=== PATIENT | female | born 1965 | race African-American/Black ===

== ENCOUNTER 2021-09-03 11:23 | Inpatient (IN) ==
[2021-09-03] MEDS ORDERED: DILTIAZEM 50 MG/10 ML VIAL IV STA (11:44)
[2021-09-03] MEDS: DILTIAZEM INJ 100 MG in SODIUM CHLORIDE 0.9% 100 ML IV SCH (12:11)
[2021-09-03 12:23] LABS: Basophils # 0.1 10*3/uL (0.0-0.2); Basophils % 0.9 % (0.0-0.8); Eosinophils # 0.1 10*3/uL (0.0-0.87); Eosinophils % 1.1 % (0.00-10.9); Hematocrit 46.9 VOL% (35.7-47.0); Hemoglobin 14.8 GM/DL (12.0-16.0); Immature Granulocytes % 0.2 %; Immature Granulocytes Absolute 0.01 #; Lymphocytes # 2.4 10*3/uL (1.4-4.0); Lymphocytes % 41.9 % (21.3-54.2); Mean Corpuscular HGB Conc 31.6 GM/DL (32-36); Mean Corpuscular Volume 66.2 FL (87-102); Monocytes % 6.3 % (1.7-12.7); NRBC # 0.04 10*3/uL; Neutrophils % 49.6 % (38.7-73.9); Platelet Count 277 T/CUMM (130-400); Red Blood Count 7.08 MC/CUMM (3.8-5.5); Red Cell Distribution Width 24.2 % (9.3-17.3); White Blood Count 5.7 T/CUMM (4-12)
[2021-09-03 12:57] LABS: Platelet Estimate Normal; Polychromasia 2+; Target Cells 2+
[2021-09-03 12:58] LABS: Anisocytosis 3+; Burr Cells Slight; Hypochromasia Slight; Macrocytosis 1+; Microcytosis 3+; Poikilocytosis 1+; Schistocytes 1+
[2021-09-03 13:09] LABS: Albumin 2.9 G/DL (3.4-5.0); Bilirubin,Total 1.6 MG/DL (0.20-1.00); Calcium 9.1 MG/DL (8.5-10.1); Osmolality,Calculated 281.4 MOS/KG (273-304); Potassium 2.9 MMOL/L (3.5-5.1); Thyroid Stimulating Hormone 2.56 uIU/ml (0.358-3.74); Total Protein 6.7 G/DL (6.4-8.2)
[2021-09-03] MEDS ORDERED: POTASSIUM CHLORIDE 20 MEQ TABLET PO STA (13:47)
[2021-09-03] MEDS ORDERED: FUROSEMIDE 40 MG/4 ML VIAL IV STA (14:33)
[2021-09-03] MEDS ORDERED: SIMETHICONE CHEW 125 MG TABLET PO PRN (15:23)
[2021-09-03] MEDS ORDERED: ONDANSETRON 4 MG/2 ML VIAL IV PRN (15:23)
[2021-09-03] MEDS ORDERED: GLUCAGON 1 MG VIAL IM PRN (15:23)
[2021-09-03] MEDS ORDERED: DOCUSATE SODIUM 100 MG CAPSULE PO PRN (15:23)
[2021-09-03] MEDS ORDERED: MAGNESIUM SULF RIDER 2 GM/50 ML PREMIX IV PRN (15:31)
[2021-09-03] MEDS ORDERED: MAGNESIUM SULF RIDER 4 GM/100 ML PREMIX IV PRN (15:31)
[2021-09-03] MEDS ORDERED: DEXTROSE 50% 25 GM/50 ML SYRINGE IV PRN (15:40)
[2021-09-03] MEDS: DIGOXIN 0.25 MG TABLET PO SCH (18:34)
[2021-09-03] MEDS: POTASSIUM CHLORIDE 20 MEQ TABLET PO PRN (20:40)
[2021-09-03] MEDS: APIXABAN 5 MG TABLET PO SCH (20:40)
[2021-09-04 05:16] LABS: Basophils # 0.1 10*3/uL (0.0-0.2); Eosinophils # 0.1 10*3/uL (0.0-0.87); Eosinophils % 1.2 % (0.00-10.9); Hematocrit 39.9 VOL% (35.7-47.0); Immature Granulocytes % 0.2 %; Immature Granulocytes Absolute 0.01 #; Lymphocytes # 2.4 10*3/uL (1.4-4.0); Lymphocytes % 40.9 % (21.3-54.2); Mean Corpuscular HGB Conc 31.1 GM/DL (32-36); Mean Corpuscular Volume 66.4 FL (87-102); Monocytes % 7.3 % (1.7-12.7); NRBC # 0.02 10*3/uL; Neutrophils % 49.4 % (38.7-73.9); Red Blood Count 6.01 MC/CUMM (3.8-5.5); White Blood Count 5.8 T/CUMM (4-12)
[2021-09-04 05:39] LABS: Hemoglobin 12.4 GM/DL (12.0-16.0); Platelet Count 193 T/CUMM (130-400)
[2021-09-04 05:48] LABS: Albumin 2.5 G/DL (3.4-5.0); Calcium 8.8 MG/DL (8.5-10.1); Osmolality,Calculated 286.8 MOS/KG (273-304); Total Protein 6.1 G/DL (6.4-8.2)
[2021-09-04] MEDS: PANTOPRAZOLE 40 MG TABLET PO SCH (10:03)
[2021-09-04] MEDS: DIGOXIN 0.25 MG TABLET PO SCH (10:03)
[2021-09-04] MEDS: NICOTINE 21 MG/24 HR PATCH TRANSDERM SCH (10:03)
[2021-09-04] MEDS: APIXABAN 5 MG TABLET PO SCH ×2 (10:03→21:42)
[2021-09-04] MEDS ORDERED: POTASSIUM CHLORIDE 20 MEQ TABLET PO ONE (10:13)
[2021-09-04] MEDS ORDERED: MAGNESIUM SULF RIDER 2 GM/50 ML PREMIX IV ONE (10:13)
[2021-09-04] MEDS ORDERED: VERAPAMIL SR 120 MG TABLET PO SCH (10:30)
[2021-09-04] MEDS: DILTIAZEM INJ 100 MG in SODIUM CHLORIDE 0.9% 100 ML IV SCH (13:15)
[2021-09-04 14:36] LABS: Bilirubin,Urine Negative (Negative); Blood, Urine Large mg/dL (Negative); Glucose,Urine (UA) Negative (Negative); Ketones,Urine Negative (Negative); Nitrite,Urine Negative (Negative); Protein,Urine 100 MG/DL; RBC,Urine 602 /HPF (0-4); Squamous Epithelial Cell,Urine Occasional /HPF (0-10); Urine Appearance Slightly Hazy (Clear); Urine Color Amber (Yellow); Urine Specific Gravity 1.034 (1.001-1.035)
[2021-09-04 14:47] LABS: Barbiturates Screen,Urine Negative (Negative); Benzodiazepines Screen,Urine Negative (Negative); Cannabinoid Screen,Urine Negative (Negative); Opiate Screen,Urine Negative (Negative); Phencyclidine Screen,Urine Negative (Negative)
[2021-09-04] MEDS: SPIRONOLACTONE 25 MG TABLET PO SCH (14:56)
[2021-09-04] MEDS: POLYETHYLENE GLYCOL POWDER 17 GM PACK PO SCH (14:57)
[2021-09-04] MEDS: VERAPAMIL SR 120 MG TABLET PO SCH (15:08)
[2021-09-04] MEDS: LACTATED RINGERS 1,000 ML IV SCH ×2 (15:45→15:46)
[2021-09-04] MEDS: FUROSEMIDE 40 MG/4 ML VIAL IV SCH (17:45)
[2021-09-04] MEDS ORDERED: VERAPAMIL SR 120 MG TABLET PO ONE (20:55)
[2021-09-04] MEDS: DOCUSATE SODIUM 100 MG CAPSULE PO SCH (21:42)
[2021-09-05 07:00] LABS: Risk Ratio 9.32; VLDL Cholesterol 19.4 MG/DL
[2021-09-05 07:41] LABS: Calcium 9.1 MG/DL (8.5-10.1); Osmolality,Calculated 282.1 MOS/KG (273-304); Potassium 3.5 MMOL/L (3.5-5.1)
[2021-09-05 07:50] LABS: Basophils % 0.6 % (0.0-0.8); Eosinophils # 0.1 10*3/uL (0.0-0.87); Eosinophils % 1.3 % (0.00-10.9); Hematocrit 41.8 VOL% (35.7-47.0); Immature Granulocytes % 0.4 %; Immature Granulocytes Absolute 0.02 #; Lymphocytes % 36.6 % (21.3-54.2); Mean Corpuscular HGB Conc 31.1 GM/DL (32-36); Mean Corpuscular Volume 67.2 FL (87-102); Neutrophils % 53.1 % (38.7-73.9); Platelet Count 217 T/CUMM (130-400); Red Blood Count 6.22 MC/CUMM (3.8-5.5); Red Cell Distribution Width 23.6 % (9.3-17.3); White Blood Count 5.4 T/CUMM (4-12)
[2021-09-05] MEDS: FUROSEMIDE 40 MG/4 ML VIAL IV SCH ×2 (09:34→16:02)
[2021-09-05] MEDS: VERAPAMIL SR 120 MG TABLET PO SCH (09:35)
[2021-09-05] MEDS: DIGOXIN 0.25 MG TABLET PO SCH (09:35)
[2021-09-05] MEDS: APIXABAN 5 MG TABLET PO SCH ×2 (09:35→21:21)
[2021-09-05] MEDS: DOCUSATE SODIUM 100 MG CAPSULE PO SCH ×2 (09:35→21:22)
[2021-09-05] MEDS: PANTOPRAZOLE 40 MG TABLET PO SCH (09:35)
[2021-09-05] MEDS: NICOTINE 21 MG/24 HR PATCH TRANSDERM SCH (09:35)
[2021-09-05] MEDS: SPIRONOLACTONE 25 MG TABLET PO SCH (09:35)
[2021-09-05] MEDS: GABAPENTIN 300 MG CAPSULE PO PRN ×2 (09:55→16:24)
[2021-09-05] MEDS: POLYETHYLENE GLYCOL POWDER 17 GM PACK PO SCH (10:11)
[2021-09-05] MEDS: POTASSIUM CHLORIDE 20 MEQ TABLET PO PRN (12:14)
[2021-09-05] MEDS: DILTIAZEM INJ 100 MG in SODIUM CHLORIDE 0.9% 100 ML IV SCH (13:07)
[2021-09-05] MEDS: ATORVASTATIN 20 MG TABLET PO SCH (21:22)
[2021-09-05] MEDS: levETIRAcetam 500 MG TABLET PO SCH (21:22)
[2021-09-06 07:00] LABS: Basophils % 0.7 % (0.0-0.8); Eosinophils # 0.2 10*3/uL (0.0-0.87); Eosinophils % 3.6 % (0.00-10.9); Hematocrit 39.1 VOL% (35.7-47.0); Hemoglobin 12.3 GM/DL (12.0-16.0); Immature Granulocytes % 0.2 %; Immature Granulocytes Absolute 0.01 #; Lymphocytes # 1.9 10*3/uL (1.4-4.0); Lymphocytes % 42.2 % (21.3-54.2); Mean Corpuscular HGB Conc 31.5 GM/DL (32-36); Mean Corpuscular Volume 65.9 FL (87-102); Monocytes % 8.7 % (1.7-12.7); Neutrophils % 44.6 % (38.7-73.9); Platelet Count 219 T/CUMM (130-400); Red Blood Count 5.93 MC/CUMM (3.8-5.5); Red Cell Distribution Width 23.2 % (9.3-17.3); White Blood Count 4.5 T/CUMM (4-12)
[2021-09-06 07:08] LABS: Calcium 8.7 MG/DL (8.5-10.1); Osmolality,Calculated 280.1 MOS/KG (273-304); Potassium 2.9 MMOL/L (3.5-5.1)
[2021-09-06] MEDS: SPIRONOLACTONE 25 MG TABLET PO SCH (08:53)
[2021-09-06] MEDS: PANTOPRAZOLE 40 MG TABLET PO SCH (08:53)
[2021-09-06] MEDS: DIGOXIN 0.25 MG TABLET PO SCH (08:53)
[2021-09-06] MEDS: APIXABAN 5 MG TABLET PO SCH ×2 (08:53→21:22)
[2021-09-06] MEDS: ASPIRIN EC 81 MG TABLET PO SCH (08:53)
[2021-09-06] MEDS: levETIRAcetam 500 MG TABLET PO SCH ×2 (08:53→21:22)
[2021-09-06] MEDS: FUROSEMIDE 40 MG/4 ML VIAL IV SCH ×2 (08:54→16:07)
[2021-09-06] MEDS: VERAPAMIL SR 120 MG TABLET PO SCH (08:54)
[2021-09-06] MEDS: NICOTINE 21 MG/24 HR PATCH TRANSDERM SCH (08:55)
[2021-09-06] MEDS: DOCUSATE SODIUM 100 MG CAPSULE PO SCH ×2 (09:02→21:23)
[2021-09-06] MEDS: POLYETHYLENE GLYCOL POWDER 17 GM PACK PO SCH (09:02)
[2021-09-06] MEDS ORDERED: ACETAMINOPHEN 500 MG TABLET PO PRN (12:30)
[2021-09-06] MEDS: DILTIAZEM INJ 100 MG in SODIUM CHLORIDE 0.9% 100 ML IV SCH (12:36)
[2021-09-06] MEDS: POTASSIUM CHLORIDE 20 MEQ TABLET PO PRN ×3 (14:11→17:48)
[2021-09-06] MEDS: ATORVASTATIN 20 MG TABLET PO SCH (21:23)
[2021-09-07 06:27] LABS: Basophils % 0.7 % (0.0-0.8); Eosinophils # 0.2 10*3/uL (0.0-0.87); Eosinophils % 3.9 % (0.00-10.9); Hematocrit 41.8 VOL% (35.7-47.0); Hemoglobin 13.2 GM/DL (12.0-16.0); Immature Granulocytes % 0.2 %; Immature Granulocytes Absolute 0.01 #; Lymphocytes # 1.9 10*3/uL (1.4-4.0); Lymphocytes % 43.7 % (21.3-54.2); Mean Corpuscular HGB Conc 31.6 GM/DL (32-36); Mean Corpuscular Volume 66.8 FL (87-102); Monocytes % 9.2 % (1.7-12.7); Neutrophils % 42.3 % (38.7-73.9); Platelet Count 235 T/CUMM (130-400); Red Blood Count 6.26 MC/CUMM (3.8-5.5); Red Cell Distribution Width 23.7 % (9.3-17.3); White Blood Count 4.4 T/CUMM (4-12)
[2021-09-07 06:47] LABS: Calcium 8.6 MG/DL (8.5-10.1); Osmolality,Calculated 278.3 MOS/KG (273-304); Potassium 3.3 MMOL/L (3.5-5.1)
[2021-09-07] MEDS ORDERED: POTASSIUM CHLORIDE 20 MEQ TABLET PO ONE (07:24)
[2021-09-07] MEDS ORDERED: NITROFURANTOIN MACRO/MONO 100 MG CAPSULE PO SCH (09:00)
[2021-09-07] MEDS ORDERED: LOSARTAN 50 MG TABLET PO SCH (09:00)
[2021-09-07] MEDS: NICOTINE 21 MG/24 HR PATCH TRANSDERM SCH (09:13)
[2021-09-07] MEDS: APIXABAN 5 MG TABLET PO SCH (09:14)
[2021-09-07] MEDS: PANTOPRAZOLE 40 MG TABLET PO SCH (09:14)
[2021-09-07] MEDS: DOCUSATE SODIUM 100 MG CAPSULE PO SCH (09:14)
[2021-09-07] MEDS: SPIRONOLACTONE 25 MG TABLET PO SCH (09:14)
[2021-09-07] MEDS: VERAPAMIL SR 120 MG TABLET PO SCH (09:14)
[2021-09-07] MEDS: DIGOXIN 0.25 MG TABLET PO SCH (09:14)
[2021-09-07] MEDS: ASPIRIN EC 81 MG TABLET PO SCH (09:14)
[2021-09-07] MEDS: levETIRAcetam 500 MG TABLET PO SCH (09:14)
[2021-09-07] MEDS: POLYETHYLENE GLYCOL POWDER 17 GM PACK PO SCH (09:15)
[2021-09-07] MEDS: FUROSEMIDE 40 MG/4 ML VIAL IV SCH ×2 (09:19→15:22)
[2021-09-07 12:10] VITALS: BP 148/86
== END 2021-09-07 15:48 | disposition home or self-care (01) | DRG 201 ==
LOC: SUATTDRO → EDBD → EDUNIT# → N.ED 11:23 → SUATTDRO 15:23 → N.EDINP 15:23 → N.TELEN 16:40
PROVIDERS: ADMIT Internal Medicine; ATTEND Emergency Medicine